=== PATIENT | male | born 1975 | race American Indian/Alaskan Native ===

== ENCOUNTER 2021-07-20 17:06 | Emergency (ER) | payer SELFPAY ==
[2021-07-20] MEDS ORDERED: IBUPROFEN 800 MG TAB PO STA (18:02)
[2021-07-20] MEDS ORDERED: oxyCODONE /ACETAMINOPHEN 5-325MG TAB PO ONE (18:02)
--- NOTE | 2021-07-20 18:08 | Emergency Department Report ---
ED General Adult HPI - General Chief complaint: Dental/Oral Stated complaint: TOOTHACHE Time Seen by Provider: 07/20/21 17:23 Source: patient Mode of arrival: Ambulatory Limitations: No Limitations - History of Present Illness Initial comments: 46-year-old -[place]ong[place] male patient presents with complaints of right upper dental pain upon waking this morning. Patient states the pain worsened when he attempted to put in a temporary ref feeling ill he bought at [employer]. He rates his pain as a 9/10 in severity. He denies any fever/chills/sweats, chest pain, or difficulty opening his jaw. NKDA per patient. He states he is visiting from [place] and is not currently following with a dental specialist. -: Sudden - Related Data Previous Rx's Medication Instructions Recorded Last Taken Type Acetaminophen/Codeine [Tylenol 1 tab PO Q8H PRN #8 tab 07/20/21 Unknown Rx /Codeine # 3 tab] Ibuprofen [Motrin 800 MG tab] 800 mg PO Q8HR PRN #21 tablet 07/20/21 Unknown Rx Penicillin V Potassium 500 mg PO QID 7 Days #28 tab 07/20/21 Unknown Rx Allergies Allergy/AdvReac Type Severity Reaction Status Date / Time No Known Allergies Allergy Unverified 07/20/21 17:19 ED Review of Systems ROS: Stated complaint: TOOTHACHE Other details as noted in HPI Constitutional: denies: chills, fever, malaise ENT: dental pain. denies: throat pain Respiratory: denies: cough Cardiovascular: denies: chest pain Hematological/Lymphatic: denies: swollen glands ED Past Medical Hx - Medications Home Medications: Home Medications Medication Instructions Recorded Confirmed Last Taken Type Acetaminophen/Codeine [Tylenol 1 tab PO Q8H PRN #8 tab 07/20/21 Unknown Rx /Codeine # 3 tab] Ibuprofen [Motrin 800 MG tab] 800 mg PO Q8HR PRN #21 tablet 07/20/21 Unknown Rx Penicillin V Potassium 500 mg PO QID 7 Days #28 tab 07/20/21 Unknown Rx ED Physical Exam - General Limitations: No Limitations General appearance: alert, in no apparent distress - Head Head exam: Present: atraumatic, normocephalic - Eye Eye exam: Present: normal appearance. Absent: scleral icterus - Expanded ENT Exam Expanded Mouth exam: Absent: drooling, trismus Teeth exam: Present: dental caries 1 - Dental Tenderness (Deep dental carry noted with tenderness to touch; mild erythema of the gums noted; no overlying facial swelling or obvious dental abscess no) - Neck Neck exam: Present: normal inspection - Respiratory Respiratory exam: Absent: respiratory distress - Cardiovascular Cardiovascular Exam: Present: regular rate - Neurological Exam Neurological exam: Present: alert, oriented X3, normal gait - Psychiatric Psychiatric exam: Present: normal affect, normal mood - Skin Skin exam: Present: warm, dry, intact, normal color. Absent: rash ED Course Vital Signs 07/20/21 07/20/21 17:21 19:12 Temperature 98 F 97.8 F Pulse Rate 94 H 81 Respiratory 16 16 Rate Blood Pressure 189/108 150/77 [Right] O2 Sat by Pulse 98 98 Oximetry ED Medical Decision Making - Medical Decision Making 46-year-old -[place] male patient presents with complaints of right upper dental pain upon waking this morning. Patient states the pain worsened when he attempted to put in a temporary ref feeling ill he bought at [employer]. He rates his pain as a 9/10 in severity. He denies any fever/chills/sweats, chest pain, or difficulty opening his jaw. NKDA per patient. He states he is visiting from [place] and is not currently following with a dental specialist. Penicillin given for dental infection. Blood pressure noted to be elevated, patient reports history of hypertension and states compliance with his blood pressure medication. No neurologic symptoms today. Recommend close monitoring of blood pressure and follow-up with primary care within 3 days. He is otherwise well-appearing and stable for discharge home. Patient to follow-up with a dental specialist within 1 week. Strict return precautions discussed in detail with patient who verbalizes understanding Critical care attestation.: If time is entered above; I have spent that time in minutes in the direct care of this critically ill patient, excluding procedure time. ED Disposition Clinical Impression: Pain, dental Disposition: 30 STILL A PATIENT Is pt being admited?: No Condition: Stable Instructions: Dental Abscess, [id number], Diet and Dental Disease Prescriptions: Ibuprofen [Motrin 800 MG tab] 800 mg PO Q8HR PRN #21 tablet PRN Reason: Pain, Moderate (4-6) Penicillin V Potassium 500 mg PO QID 7 Days #28 tab Acetaminophen/Codeine [Tylenol /Codeine # 3 tab] 1 tab PO Q8H PRN #8 tab PRN Reason: Pain , Severe (7-10) Referrals: [facility] [Outside] - 3-5 Days [facility] [Outside] - 3-5 Days Forms: Work/School Release Form(ED)
[2021-07-20 19:15] VITALS: BP 150/77
== END 2021-07-20 19:15 | disposition still patient (30) ==
LOC: ED 17:06
DX: K08.89 Other specified disorders of teeth and supporting structures (principal)
CPT/HCPCS: 99282